=== PATIENT | male | born 2000 | race Caucasian/White ===

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

== ENCOUNTER 2022-02-06 21:13 | Emergency (ER) | payer MEDICAID, SELFPAY ==
[2022-02-06 21:21] VITALS: BP 116/52; PULSE 63; RESP 16; TEMP 37.1; O2SAT 100
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
== END 2022-02-06 22:16 | disposition home or self-care (01) ==
PROVIDERS: Emergency Provider Physician Assistant; PCP Pediatrics
DX: S62.327A Displaced fracture of shaft of fifth metacarpal bone, left hand, initial encounter for closed fracture (principal); J45.909 Unspecified asthma, uncomplicated; F17.210 Nicotine dependence, cigarettes, uncomplicated; W22.03XA Walked into furniture, initial encounter
CPT/HCPCS: 29125; 99283; 73130; 99284

== ENCOUNTER 2022-03-19 10:45 | Outpatient (CLI) | payer MEDICAID, SELFPAY ==
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
== END 2022-03-19 10:46 | disposition home or self-care (01) ==
LOC: DIORS 10:45
PROVIDERS: PCP Pediatrics; Referring Provider Pediatrics; Visit Provider Student in an Organized Health Care Education/Training Program
DX: S62.307D Unspecified fracture of fifth metacarpal bone, left hand, subsequent encounter for fracture with routine healing (principal); X58.XXXD Exposure to other specified factors, subsequent encounter
CPT/HCPCS: 73130